=== PATIENT | female | born 1990 | race Caucasian/White ===

== ENCOUNTER → 2017-04-19 | Outpatient (CLI) | payer MEDICAID ==
[2017-04-19 20:58] LABS: CLUE CELLS PRESENT (Not Observd)
== END ==
LOC: LAB 19:27
PROVIDERS: Nurse Practitioner Family
DX: Z20.2 Contact with and (suspected) exposure to infections with a predominantly sexual mode of transmission (principal)
CPT/HCPCS: Q0111

== ENCOUNTER → 2017-09-18 | Outpatient (CLI) | payer SELFPAY ==
[~2017-09-18] MED LIST: NORCO 325 MG-51 TA1 PO; ZOFRAN ODT4 MG PO
== END ==
LOC: RAD 12:40
DX: S61.051A Open bite of right thumb without damage to nail, initial encounter (principal)

== ENCOUNTER 2017-09-19 03:18 | Emergency (ER) | payer SELFPAY ==
[2017-09-19 04:25] LABS: EOS # 0.3 (0.04-0.40); EOS % 1.9 % (1.0-5.0); HEMATOCRIT 43.6 % (37.0-47.0); HEMOGLOBIN 14.2 g/dL (12.5-16.0); MEAN CELL VOLUME 88 fl (78-100); MEAN CORPUSCULAR HEMOGLOBIN 29 pg (27-31); MEAN CORPUSCULAR HGB CONC 33 g/dL (33-37); MEAN PLATELET VOLUME 10.1 fl (7.4-10.4); MONO # 1.2 (0.20-0.80); PLATELET COUNT 310 K/mm3 (130-400); RED BLOOD COUNT 4.98 M/mm3 (4.10-5.30); RED CELL DISTRIBUTION WIDTH 13.5 % (11.5-14.5); WHITE BLOOD COUNT 17.7 K/mm3 (4.8-10.8)
[2017-09-19] MEDS ORDERED: ZOFRAN ODT4 MG PO (04:36)
[2017-09-19] MEDS ORDERED: NORCO 325 MG-51 TA1 PO (04:36)
[2017-09-19 04:52] VITALS: BP 127/76
== END 2017-09-19 04:52 | disposition home or self-care (01) ==
LOC: ED 03:18
PROVIDERS: Nurse Practitioner Primary Care
DX: S61.051A Open bite of right thumb without damage to nail, initial encounter (principal); L03.011 Cellulitis of right finger; W55.01XA Bitten by cat, initial encounter; F17.200 Nicotine dependence, unspecified, uncomplicated

== ENCOUNTER 2018-02-18 05:42 | Emergency (ER) | payer MEDICAID ==
[~2018-02-18] VITALS: Ht 162.6 cm; Wt 61.4 kg
[2018-02-18 06:50] LABS: EOS # 0.1 (0.04-0.40); EOS % 0.9 % (1.0-5.0); HEMATOCRIT 47.1 % (37.0-47.0); HEMOGLOBIN 15.6 g/dL (12.5-16.0); MEAN CELL VOLUME 87 fl (78-100); MEAN CORPUSCULAR HEMOGLOBIN 29 pg (27-31); MEAN CORPUSCULAR HGB CONC 33 g/dL (33-37); MEAN PLATELET VOLUME 10.1 fl (7.4-10.4); MONO # 0.4 (0.20-0.80); NEU # 5.5 (1.40-6.50); PLATELET COUNT 258 K/mm3 (130-400); RED BLOOD COUNT 5.44 M/mm3 (4.10-5.30); RED CELL DISTRIBUTION WIDTH 12.9 % (11.5-14.5)
[2018-02-18] MEDS ORDERED: NORCO 325 MG-51 TA1 PO (07:15)
[2018-02-18] MEDS ORDERED: CEPHALEXIN250 MG PO (07:15)
[2018-02-18 07:29] VITALS: BP 137/91
[2018-02-18] MEDS ORDERED: ZOFRAN ODT4 MG PO (07:31)
== END 2018-02-18 07:29 | disposition home or self-care (01) ==
LOC: ED 05:42
PROVIDERS: Family Medicine
DX: H92.02 Otalgia, left ear (principal); Z88.0 Allergy status to penicillin